=== PATIENT | female | born 1980 | race Caucasian/White ===

== ENCOUNTER → 2020-08-05 | Outpatient (CLI) | payer OTHER ==
--- NOTE | 2020-08-05 14:49 | XR ---
Cervical spine HISTORY: Pain, trauma one month prior 5 views of the cervical spine There is a thoracic spinal curvature. There is no significant foraminal encroachment. Cervical verteb ral bodies show preserved height, alignment, and bone mineralization. There is some loss of disc heig ht at C6-7 with associated spondylosis, some loss of disc height C3-4, C4-5. There is some facet arth ropathy change. Prevertebral soft tissues are normal. impression: Degenerative disc disease, there is some facet arthropathy change. Thoracic spinal curvat ure.
--- NOTE | 2020-08-05 14:53 | XR ---
Left shoulder, left humerus, left forearm, left wrist and left elbow HISTORY: Trauma one month prior, pain 3 views the left shoulder, 3 views of the left elbow, 4 views the left wrist, 2 views the left forear m, 2 views the left humerus Left lung apex as visualized is normal. Bone mineralization, joint spaces and alignment are maintaine d. There is no evident elbow joint effusion Question dorsal displacement of the distal ulna on the lateral exam compared to the distal radius, fi ndings likely projectional. Impression: No evident fracture or dislocation of the left shoulder, left humerus, left elbow, left f orearm, or left wrist. Correlate to exclude posterior subluxation of the distal ulna
== END | disposition home or self-care (01) ==
LOC: RADXRMAIN 13:03
PROVIDERS: ATTEND Family Medicine
DX: M50.30 Other cervical disc degeneration, unspecified cervical region (principal); M47.812 Spondylosis without myelopathy or radiculopathy, cervical region; M43.8X4 Other specified deforming dorsopathies, thoracic region; M25.512 Pain in left shoulder; M25.522 Pain in left elbow; M79.622 Pain in left upper arm; M25.532 Pain in left wrist; M79.632 Pain in left forearm
CPT/HCPCS: 72050

== ENCOUNTER 2020-12-29 16:25 | Emergency (ER) | payer OTHER ==
[2020-12-29 16:41] VITALS: RESP 18
[2020-12-29] MEDS ORDERED: ACETAMINOPHEN TAB 500 MG TAB PO STA (17:03)
[2020-12-29 17:36] LABS: Basophils % (A) 0 %; Eosinophils # (A) 0.1 k/uL (0-0.7); Eosinophils % (A) 0 %; HCT 37.8 % (34.0-46.0); Lymphocytes # (A) 1.7 k/uL (1.0-4.8); Lymphocytes % (A) 14 %; MCH 32.6 pg (25.0-35.0); MCHC 34.3 g/dL (31.0-37.0); MCV 95.1 fL (80.0-100.0); Monocytes # (A) 0.5 k/uL (0-1.0); Monocytes % (A) 4 %; Neutrophils # (A) 9.9 k/uL (1.3-7.7); Neutrophils % (A) 81 %; Platelet Count 343 k/uL (150-450); RBC 3.98 m/uL (3.80-5.40); RDW 13.1 % (11.5-15.5); WBC 12.2 k/uL (3.8-10.6)
[2020-12-29 17:45] LABS: ALT 14 U/L (4-34); AST 27 U/L (14-36); African American GFR (CKD) >90 (>60 ml/min/1.73 sqM); Albumin 4.3 g/dL (3.5-5.0); Alkaline Phosphatase 95 U/L (38-126); Anion Gap 9 mmol/L; Blood Urea Nitrogen 14 mg/dL (7-17); Carbon Dioxide 21 mmol/L (22-30); Chloride 105 mmol/L (98-107); Glucose 97 mg/dL (74-99); Magnesium 1.6 mg/dL (1.6-2.3); Non-African American GFR(CKD) >90 (>60 ml/min/1.73 sqM); Partial Thromboplastin Time 22.1 sec (22.0-30.0); Potassium 3.9 mmol/L (3.5-5.1); Prothrombin Time 10.3 sec (9.0-12.0); Sodium 135 mmol/L (137-145); Total Bilirubin 0.8 mg/dL (0.2-1.3); Total Protein 7.4 g/dL (6.3-8.2)
--- NOTE | 2020-12-29 18:21 | XR ---
EXAMINATION: XR chest 2V DATE AND TIME: 12/29/2020 5:34 PM CLINICAL INDICATION: Cough, dyspnea, chest pain TECHNIQUE: Departmental protocol COMPARISON: None FINDINGS: The lungs are clear. The pleural spaces are negative. The cardiac silhouette is not enlarged. The remainder of the mediastinal silhouette is unremarkable. The skeletal structures and soft tissues are negative for acute findings. IMPRESSION: NO ACUTE PROCESS.
--- NOTE | 2020-12-29 18:36 | ED ---
General Adult HPI - General Chief complaint: Upper Respiratory Infection Stated complaint: Chest Pain, Headache Time Seen by Provider: 12/29/20 16:35 Source: patient, RN notes reviewed, old records reviewed Mode of arrival: ambulatory Limitations: no limitations - History of Present Illness Initial comments: This is a 40-year-old female who comes in complaining of postnasal drip which is causing her some sore throat. Patient states she has ALLERGY so she thought it might be that but his been ongoing for 2 weeks Patient states her had similar symptoms but he is now getting better. Patient states she also had an occasional chest tightness but does not currently have any chest pain. Patient states she has no shortness of breath or palpitations. Patient also complains of a headache as well. Patient denies any known fever. Patient denies any lightheadedness dizziness or near syncopal episode. Patient has no tenderness over sinuses and no tenderness to the teeth. - Related Data Home Medications Medication Instructions Recorded Confirmed Cetirizine HCl [Zyrtec] 10 mg PO DAILY 12/29/20 12/29/20 EPINEPHrine (Auto Inject) [Epipen] 0.3 mg IM ONCE PRN 12/29/20 12/29/20 Allergies Allergy/AdvReac Type Severity Reaction Status Date / Time No Known Allergies Allergy Verified 12/29/20 18:02 Review of Systems ROS Statement: Those systems with pertinent positive or pertinent negative responses have been documented in the HPI. ROS Other: All systems not noted in ROS Statement are negative. Past Medical History Additional Past Medical History / Comment(s): allergies History of Any Multi-Drug Resistant Organisms: None Reported Past Surgical History: No Surgical Hx Reported Past Psychological History: Depression Smoking Status: Never smoker Past Alcohol Use History: Occasional Past Drug Use History: None Reported General Exam - General Exam Comments Initial Comments: GENERAL: Patient is well-developed and well-nourished. Patient is nontoxic and well- hydrated and is in mild distress. ENT: Neck is soft and supple. No significant lymphadenopathy is noted. Oropharynx is clear. Moist mucous membranes. Neck has full range of motion without eliciting any pain. EYES: The sclera were anicteric and conjunctiva were pink and moist. Extraocular movements were intact and pupils were equal round and reactive to light. Eye lids were unremarkable. PULMONARY: Unlabored respirations. Good breath sounds bilaterally. No audible rales rhonchi or wheezing was noted. CARDIOVASCULAR: There is a regular rate and rhythm without any murmurs gallops or rubs. ABDOMEN: Soft and nontender with normal bowel sounds. SKIN: Skin is clear with no lesions or rashes and otherwise unremarkable. NEUROLOGIC: Patient is alert and oriented x3. Cranial nerves II through XII are grossly intact. Motor and sensory are also intact. Normal speech, volume and content. Symmetrical smile. MUSCULOSKELETAL: Normal extremities with adequate strength and full range of motion. LYMPHATICS: No significant lymphadenopathy is noted PSYCHIATRIC: Normal psychiatric evaluation. Limitations: no limitations Course Vital Signs 12/29/20 12/29/20 12/29/20 16:36 17:28 18:42 Temperature 99.2 F Pulse Rate 123 H 98 87 Respiratory 18 18 18 Rate Blood Pressure 161/101 147/96 131/86 O2 Sat by Pulse 98 100 100 Oximetry 12/29/20 19:02 Temperature 97.8 F Pulse Rate 85 Respiratory 18 Rate Blood Pressure 136/87 O2 Sat by Pulse 97 Oximetry Medical Decision Making - Medical Decision Making EKG shows normal sinus rhythm at 99 bpm AR interval is 126 dresses 86 QT interval 340 QTC is 446. Patient's EKG shows no ST segment elevation or depression. - Lab Data Result diagrams: 12/29/20 17:20 12/29/20 17:20 Lab Results 12/29/20 12/29/20 12/29/20 Range/Units 17:20 17:20 17:20 WBC 12.2 H (3.8-10.6) k/uL RBC 3.98 (3.80-5.40) m/uL Hgb 13.0 (11.4-16.0) gm/dL Hct 37.8 (34.0-46.0) % MCV 95.1 (80.0-100.0) fL MCH 32.6 (25.0-35.0) pg MCHC 34.3 (31.0-37.0) g/dL RDW 13.1 (11.5-15.5) % Plt Count 343 (150-450) k/uL MPV 7.0 Neutrophils % 81 % Lymphocytes % 14 % Monocytes % 4 % Eosinophils % 0 % Basophils % 0 % Neutrophils # 9.9 H (1.3-7.7) k/uL Lymphocytes # 1.7 (1.0-4.8) k/uL Monocytes # 0.5 (0-1.0) k/uL Eosinophils # 0.1 (0-0.7) k/uL Basophils # 0.0 (0-0.2) k/uL PT 10.3 (9.0-12.0) sec INR 1.0 (<1.2) APTT 22.1 (22.0-30.0) sec Sodium 135 L (137-145) mmol/L Potassium 3.9 (3.5-5.1) mmol/L Chloride 105 (98-107) mmol/L Carbon Dioxide 21 L (22-30) mmol/L Anion Gap 9 mmol/L BUN 14 (7-17) mg/dL Creatinine 0.70 (0.52-1.04) mg/dL Est GFR (CKD-EPI)AfAm >90 (>60 ml/min/1.73 sqM) Est GFR (CKD-EPI)NonAf >90 (>60 ml/min/1.73 sqM) Glucose 97 (74-99) mg/dL Calcium 9.0 (8.4-10.2) mg/dL Magnesium 1.6 (1.6-2.3) mg/dL Total Bilirubin 0.8 (0.2-1.3) mg/dL AST 27 (14-36) U/L ALT 14 (4-34) U/L Alkaline Phosphatase 95 (38-126) U/L Troponin I (0.000-0.034) ng/mL Total Protein 7.4 (6.3-8.2) g/dL Albumin 4.3 (3.5-5.0) g/dL Coronavirus (PCR) (Not Detectd) 12/29/20 12/29/20 Range/Units 17:20 17:20 WBC (3.8-10.6) k/uL RBC (3.80-5.40) m/uL Hgb (11.4-16.0) gm/dL Hct (34.0-46.0) % MCV (80.0-100.0) fL MCH (25.0-35.0) pg MCHC (31.0-37.0) g/dL RDW (11.5-15.5) % Plt Count (150-450) k/uL MPV Neutrophils % % Lymphocytes % % Monocytes % % Eosinophils % % Basophils % % Neutrophils # (1.3-7.7) k/uL Lymphocytes # (1.0-4.8) k/uL Monocytes # (0-1.0) k/uL Eosinophils # (0-0.7) k/uL Basophils # (0-0.2) k/uL PT (9.0-12.0) sec INR (<1.2) APTT (22.0-30.0) sec Sodium (137-145) mmol/L Potassium (3.5-5.1) mmol/L Chloride (98-107) mmol/L Carbon Dioxide (22-30) mmol/L Anion Gap mmol/L BUN (7-17) mg/dL Creatinine (0.52-1.04) mg/dL Est GFR (CKD-EPI)AfAm (>60 ml/min/1.73 sqM) Est GFR (CKD-EPI)NonAf (>60 ml/min/1.73 sqM) Glucose (74-99) mg/dL Calcium (8.4-10.2) mg/dL Magnesium (1.6-2.3) mg/dL Total Bilirubin (0.2-1.3) mg/dL AST (14-36) U/L ALT (4-34) U/L Alkaline Phosphatase (38-126) U/L Troponin I <0.012 (0.000-0.034) ng/mL Total Protein (6.3-8.2) g/dL Albumin (3.5-5.0) g/dL Coronavirus (PCR) Not Detected (Not Detectd) Disposition Clinical Impression: Upper respiratory tract infection Disposition: HOME SELF-CARE Condition: Good Instructions (If sedation given, give patient instructions): Upper Respiratory Infection (ED) Is patient prescribed a controlled substance at d/c from ED?: No Referrals: None,Stated [Primary Care Provider] - 1-2 days Time of Disposition: 18:57
[2020-12-29 19:04] VITALS: BP 136/87; PULSE 85; TEMP 97.8
== END 2020-12-29 19:02 | disposition home or self-care (01) ==
LOC: EC 16:25
DX: J06.9 Acute upper respiratory infection, unspecified (principal)
CPT/HCPCS: 36415; 71046; 80053; 83735; 84484; 85025; 85610; 85730; 87635; 93005; 99284